=== PATIENT | female | born 1945 ===

== ENCOUNTER 2022-11-27 13:48 | Inpatient (IN) | payer MEDICARE, MEDICAID ==
[2022-11-27] VITALS (16 sets, daily range): BP systolic 129–185; BP diastolic 61–111
[~2022-11-27] VITALS: Ht 152.4 cm; Wt 56.5 kg
--- NOTE | 2022-11-27 15:00 | NUR ---
PT TO THE OR AT THIS TIME. DR BONNER IN TO SEE PATIENT PRIOR TO LEAVING THE FLOOR. PAS PLACED. SURGICAL PKT PLACED ON CHART AND CHECKLIST STARTED. PT IV'S PATENT X3. WILL MONITOR WHEN PT RETURNS TO FLOOR.
--- NOTE | 2022-11-27 16:08 | NUR ---
PT HAS 18 G IN R AC THAT FLUSHES WELL, NO SIGNS OF INFILTRATION. NO SWELLING, REDNESS, COOLNESS TO THE TOUCH.
[2022-11-27] MEDS ORDERED: HYDROCODONE-AC1 EAC7 PO (17:10)
--- NOTE | 2022-11-27 17:44 | NUR ---
11/27/22 1744 Carrie Alicea PT ON SCHEDULED ANTIBIOTICS
--- NOTE | 2022-11-27 19:33 | NUR ---
PT REMAINS IN OR AT THIS TIME FOR TRANSVERSE COLECTOMY. REPORT GIVEN TO HARJEET RN. SON UPDATED ON PT STATUS. PT ABX SENT WITH HER TO OR. TELE NEEDS TO BE PLACED WHEN PT RETURNS TO FLOOR.
--- NOTE | 2022-11-27 22:14 | NUR ---
PT ARRIVED TO RM 211 POST OP @2150. PT STATES 8/10 PAIN IN ABD, WILL SET UPPCA PUMP ORDERED. MIDLINE BRIELLE DRESSING INTACT. VSS. OPENS EYES TO VERBAL STIMULI. CALL LIGHT IN REACH.
--- NOTE | 2022-11-28 00:19 | NUR ---
PAIN MANAGEMENT PT REPORTING 10/10 CONSTANT DULL PRESSURE IN ABD. PT HAS BEEN PRESSING POUNCER MACHINE PUMP BUTTON, PAIN NOT BEING RELIEVED. PT GRIMACES, HOLDS ONTO ABD, MOANS & SAYS "PLEASE HELP." INFORMED DR GALEAS OF NO PAIN RELIEF & HE STATED TO USE ALREADY ORDERED IV DILAUDID ON EMAR TO ASSIST c PAIN RELIEF FIRST. NO ORDERS OR CHANGES TO ORDERS AT THIS TIME.
[2022-11-28 01:06] VITALS: BP 181/98
[2022-11-28 02:40] VITALS: BP 173/92
--- NOTE | 2022-11-28 02:56 | NUR ---
UPDATE ASKED BY TELE MONITOR TO CHECK ON PTS LEADS. PT VERY DIAPHORETIC WHEN ASSESSING LEADS & STATING PAIN LEVEL BACK UP TO 9 & CLIMBING, PT RECIEVING FENTANYL ART TRACER & NOT TIME FOR IV DILAUDID. SBP ALSO STILL TRENDING HIGH 170-180'S. INFORMED DR GALEAS & HE ORDERED 1x DOSE 10MG HYDRALAZINE & CHANGED IV DILAUDID TO Q2H PRN. WILL MEDICATED & MONITOR.
[2022-11-28 03:16] VITALS: BP 144/82
[2022-11-28 04:56] LABS: BASOPHILS ABSOLUTE AUTO 0.03 K/mm3 (0.00-0.23); BASOPHILS PERCENT AUTO 0 % (0-2); EOSINOPHILS PERCENT AUTO 0 % (0-6); Hematocrit 30.6 % (33.0-51.0); Hemoglobin 9.7 g/dL (11.5-16.0); IMMATURE GRAN ABSOLUTE AUTO 0.17 K/mm3 (0.00-0.10); IMMATURE GRAN PERCENT AUTO 1 % (0-1); LYMPHOCYTES ABSOLUTE AUTO 1.15 K/mm3 (0.84-5.20); LYMPHOCYTES PERCENT AUTO 7 % (21-46); MONOCYTES ABSOLUTE AUTO 0.96 K/mm3 (0.16-1.47); MONOCYTES PERCENT AUTO 6 % (4-13); Mean Corpuscular HGB 26.4 pg (26.0-34.0); Mean Corpuscular HGB Conc 31.7 g/dL (31.5-36.5); Mean Corpuscular Volume 83 fL (80-100); Mean Platelet Volume 8.6 fL (9.1-12.4); NEUTROPHILS ABSOLUTE AUTO 14.96 K/mm3 (1.96-9.15); NEUTROPHILS PERCENT AUTO 87 % (41-73); Platelet Count 702 K/mm3 (150-400); RDW Coefficient Variation 14.6 % (11.7-14.2); RDW Standard Deviation 44.5 fL (35.1-46.3); Red Blood Cell Count 3.68 M/mm3 (3.80-5.20); White Blood Cell Count 17.27 K/mm3 (4.00-11.30)
[2022-11-28 06:08] LABS: Albumin, Blood 2.3 g/dL (3.4-5.0); Albumin/Globulin Ratio 0.6 (0.8-1.8); Bilirubin, Total 0.4 mg/dL (0.1-1.0); Bun/Creatinine Ratio 20.8 (12.0-20.0); Calcium, Blood 7.9 mg/dL (8.5-10.1); Creatinine, Blood 0.38 mg/dL (0.40-1.00); Potassium, Blood 3.3 mmol/L (3.5-5.5); Total Protein, Blood 6.3 g/dL (6.4-8.2)
--- NOTE | 2022-11-28 06:30 | NUR ---
SHIFT SUMMARY AOX4. POD 1-EX LAP c COLECTOMY. MIDLINE BRIELLE DRESSING IN PLACE, C/D/I. ABD VERY PAINFUL, TENDER TO PALPATION. REPORTS 7-10/10 ABD PAIN, MEDICATED 2x c 1MG IV DILAUDID ON TOP OF USING EXECUTIVE CANDIDATE DEVELOPER PUMP, LOWEST PAIN LEVEL REPORTED WAS 6. DENIES N/V. HYPOACTIVE BT. BP ELEVATED EARLIER, READ PREVIOUS NOTE, LAST BP TRENDED DOWN TO 144/82. TELE ST c PVC'S HR 112 THIS AM. CR PATENT, 1000ML YELLOW URINE OUT. CALL LIGHT IN REACH, WILL MONITOR.
[2022-11-28 07:47] VITALS: BP 138/88
--- NOTE | 2022-11-28 10:36 | NUR ---
DR CARTWRIGHT IN TO SEE PT.
[2022-11-28 13:09] VITALS: BP 118/71
--- NOTE | 2022-11-28 13:15 | NUR ---
PATIENT DISORIENTED WHEN SHE WOKE UP PATIENT THOUGHT DAUGHTER WAS IN HOSP. REORIENTED PATIENT TO LOCATION THEN PATIENT WAS ABLE TO VERBALIZE REASON IN HOSP. APPEARS REORIENTED AT THIS TIME. PATIENT REPORTS GOOD PAIN CONTROL. CALL LIGHT WITHIN REACH BED ALARM ON FOR SAFETY.
--- NOTE | 2022-11-28 13:42 | NUR ---
REMOVED SATS 95% ON RA.
--- NOTE | 2022-11-28 15:04 | NUR ---
DR BONNER IN TO SEE PT.
--- NOTE | 2022-11-28 15:10 | NUR ---
Patient laying in bed. patient stated her pain level was comfortable. helped patient eat two ice chips and turned on the tv. Patient in bed watching tv with bed alarm on and call light within reach.
--- NOTE | 2022-11-28 16:00 | NUR ---
Reported to Nena Mcconnell rn who will assume overseeing care of pt.
--- NOTE | 2022-11-28 16:17 | NUR ---
CARE ASSUMED AT 1600. AT TIME OF BEDSIDE REPORT PT WAS SITTING UP TO THE CHAIR. HER HR IS ELEVATED WHEN SITTING TO THE CHAIR AND BP IS SOFT BUT STILL WNL. PAIN MANAGED WITH DILAUDID SWIM COACH. WILL CONTINUE TO MONITOR.
--- NOTE | 2022-11-28 17:53 | NUR ---
education educated patient on the importance of using a incentive spirometer. PATIENT DENIED USE OF SPIROMETER AT THIS. PATIENT LYING IN BED WITH CALL LIGHT WITHIN REACH AND BED ALARM ON.
--- NOTE | 2022-11-28 18:02 | NUR ---
SHIFT SUMMARY NO ACUTE CHANGES. PATIENT ON AND OFF THE PHONE WITH FAMILY MEMBERS THROUGH OUT THE DAY. PATIENT GOT UP ONCE IN CHAIR AND WAS ONLY ABLE TO TOLERATE IT FOR 20 MINUTES DUE TO PAIN AND HIGH HEART RATE (SEE VITAL SIGNS). PATIENT WAS ON FENTANYL CUSTOM TAILOR APPRENTICE PUMP BUT IT DID NOT MANAGE HER PAIN LEVEL AND WAS CHANGED TO A DILAUDID CUSTOM TAILOR APPRENTICE PUMP. PATIENT CUSTOM TAILOR APPRENTICE PUMP DILAUDID DOSE WAS LOWED (SEE EMAR) DUE TO PATIENT BEING CONFUSED AND SEEING HER DAUGHTER WHO WAS NOT IN THE ROOM. PATIENT STATES THE DILAUDID CUSTOM TAILOR APPRENTICE PUMP IS MANAGING HER PAIN LEVEL. PATIENT IS POST OP DAY 1 OF COLECTOMY AND HAS A BRIELLE DRESSING CLD ON HER MIDLINE ABDOMEN. PATIENT IS A ONE PERSON ASSIST. PATIENT WAS PLEASENT THROUGH OUT SHIFT AND LYING IN BED. CALL LIGHT WITHIN REACH AND BED ALARM ON.
[2022-11-28 19:30] VITALS: BP 119/77
--- NOTE | 2022-11-28 22:15 | NUR ---
ASSUMED CARE ASSUMED CARE OF PT, THE PATIENT IS CURRENTLY SLEEPIMG, IN NO DISTRESS, CALL LIGHT IN REACH
--- NOTE | 2022-11-28 22:28 | NUR ---
REPORT GIVEN TO DIVINE CELESTE RN.
[2022-11-29 02:38] VITALS: BP 135/68
--- NOTE | 2022-11-29 04:38 | NUR ---
SHIFT SUMMARY POD2 FOR TRANSVERSE COLECTOMY. MIDLINE BRIELLE IS C/D/I, NO EXUDATE NOTED. VSS. 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 PT REMAINS ASYMPTOMATIC. PER ORDER, DILAUDID DATA ANALYST ETL DEVELOPER STOPPED AT 2302 D/T INCREASED CONFUSION. PT IS A/OX2, CONTINUES TO LOOK FOR HER DOG AND FAMILY WHILE AWAKE AND APPERS TO BECOME SAD WHEN REORIENTED. REORIENTATION REQUIRED MULTIIPLE TIMES IN CONVORSATION WHEN PT IS AWAKE. PT HAS NOT REPORTED INCREASED PAIN SINCE DATA ANALYST ETL DEVELOPER HAS BEEN TURNED OFF. PT HAS BEEN ABLE TO REPOSITION SELF IN BED T/O THE NIGHT. CR REMAINS IN PLACE, DRAINING BELLA URINE. LOW URINE OUTPUT NOTED, IV FLUIDS INFUSING. PT HAS TOLLERATED ICE CHIPS T/O THE NIGHT PER ORDER W/O N/V. PT REPORTS NO FLATTUS. PLAN FOR PT TO FOLLOW MED/GABRIELA MANAGEMENT, ADVANCE DIET, HAVE PALLIATIVE CONSULT, AND D/C HOME WHEN APPROPRIATE.
--- NOTE | 2022-11-29 05:54 | NUR ---
PAIN CONTROL PT AWOKE AT 0545 AND IS A/OX4, ANSWERING ALL ORIENTATION QUESTIONS APPROPRIATELY AND ACTING APPROPRIATELY. PT REPORTING INCREASED PAIN AT THIS TIME, DIVISION HUMAN RESOURCES MANAGER RESTARTED WITH A DIVISION HUMAN RESOURCES MANAGER ONLY DOSE OF 0.2. NO CONTINUOUS DOSE PROGRAMED. VERIFIED WITH CHARGE JAYLENE.
[2022-11-29 07:17] VITALS: BP 113/68
--- NOTE | 2022-11-29 13:32 | NUR ---
Met with pt this morning along with Palliative volunteer. She is alert and oriented, pleasant and cooperative. She states she just found out she has cancer. She did not appear anxious about it, and reports she hasn't gotten any "specifics" yet. She states she hasn't had any discussions with surgeon or hospitalist regarding pathology or prognosis and hasn't met with any oncologist yet either. Pt discussed a lot of the stressors in her life currently, but shuts down almost immediately with any follow up questions. Code status and advanced care planning to be discussed at a later date, once pt has a better grasp and more detailed information.
[2022-11-29 14:56] VITALS: BP 141/77
--- NOTE | 2022-11-29 16:29 | NUR ---
SHIFT SUMMARY POD 2 COLECTOMY. MIDLINE ABDOMINAL INCISION W/ BRIELLE IN PLACE, LIGHT DRAINAGE NOTED, SUCTION INTACT. PAIN MANAGED WITH DILAUDID SALON SALES CONSULTANT. PATIENT UP TO CHAIR & BSC 1P MINIMAL ASSIST. CR DC'D, VOIDING W/O DIFFICULTY. REMAINS NPO PER ORDERS, TOLERATING ICE CHIPS WELL. DENIES N/V. DENIES FLATUS & BM. CALLS APPROPRIATELY, IN REACH.
[2022-11-29 20:22] VITALS: BP 133/81
[2022-11-30 03:48] VITALS: BP 121/79
--- NOTE | 2022-11-30 04:05 | NUR ---
SHIFT SUMMARY POD3 TRANSVERSE COLECTOMY. MIDLINE BRIELLE IS COMPRESSED, C/D/I. VSS, TELE READS 101 W/PVC'S. PT TOLLERATED SMALL AMOUNTS OF ORAL FLUIDS T/O THE NIGHT. MEDICATED FOR NAUSEA ONCE, NO ENESIS NOTED. PT SLEPT WELL T/O THE NIGHT. PAIN HAS BEEN MANAGED WITH CLIENT SERVICE ADMINISTRATOR. PT HAS HAD MULTIPLE INCONTINENT VOIDS T/O THE NIGHT. PT REPORTS NO FLATTUS, NO STOOL NOTED. T/O THE NIGHT PT HAS REQUIRED ONGOING ENCOURAGEMENT AND DIRECTION. PT REPORTS FEELING OVERWHELMED WITH CURRENT SITUATION. PLAN FOR PT TO SLOWLY ADCANCE DIET, AWAITING PATHOLOGY REPORT. THE PATIENT IS CURRENTLY RESTING, IN NO DISTRESS, CALL LIGHT IN REACH
[2022-11-30 06:13] LABS: BASOPHILS ABSOLUTE AUTO 0.12 K/mm3 (0.00-0.23); BASOPHILS PERCENT AUTO 1 % (0-2); EOSINOPHILS ABSOLUTE AUTO 0.11 K/mm3 (0.00-0.68); EOSINOPHILS PERCENT AUTO 1 % (0-6); Hematocrit 27.1 % (33.0-51.0); Hemoglobin 8.4 g/dL (11.5-16.0); IMMATURE GRAN ABSOLUTE AUTO 0.25 K/mm3 (0.00-0.10); IMMATURE GRAN PERCENT AUTO 2 % (0-1); LYMPHOCYTES ABSOLUTE AUTO 2.16 K/mm3 (0.84-5.20); LYMPHOCYTES PERCENT AUTO 20 % (21-46); MONOCYTES ABSOLUTE AUTO 0.79 K/mm3 (0.16-1.47); MONOCYTES PERCENT AUTO 7 % (4-13); Mean Corpuscular HGB 26.3 pg (26.0-34.0); Mean Corpuscular Volume 85 fL (80-100); Mean Platelet Volume 8.9 fL (9.1-12.4); NEUTROPHILS ABSOLUTE AUTO 7.62 K/mm3 (1.96-9.15); NEUTROPHILS PERCENT AUTO 69 % (41-73); Platelet Count 605 K/mm3 (150-400); RDW Coefficient Variation 15.1 % (11.7-14.2); RDW Standard Deviation 46.3 fL (35.1-46.3); Red Blood Cell Count 3.19 M/mm3 (3.80-5.20); White Blood Cell Count 11.05 K/mm3 (4.00-11.30)
[2022-11-30 06:47] LABS: Bun/Creatinine Ratio 12.5 (12.0-20.0); Creatinine, Blood 0.4 mg/dL (0.40-1.00)
--- NOTE | 2022-11-30 07:30 | NUR ---
Patient consent statement. Patient consented this 2nd year professional nursing tutor to participate in her care today 11/30/2022. CT
[2022-11-30 07:45] VITALS: BP 134/77
[2022-11-30 14:52] VITALS: BP 145/74
--- NOTE | 2022-11-30 15:30 | NUR ---
STUDENT NURSING NOTES. PT IS A/O X4. TOLERATING LIQUID DIET. EXPERIENCES INTERMITTENT HEARTBURN, BUT DENIES NAUSEA OR VOMITTING. PT UP TO CHAIR FOR BREAKFAST, BUT DECLINED FOR LUNCH D/T CHRONIC SCIATIC BACK PAIN. NO BOWEL MOVEMENT, OR PASSING GAS. IS BELCHING. AMBULATES WITH WALKER. HX OF INCONTINENCE AND WEARS ATTENDS PER REQUEST. SOMETIMES USES CALL LIGHT FOR BEDPAN. MIDLINE ABDOMINAL BRIELLE DRESSING IS INTACT, COMPRESSED AND SUCTIONING. SCANT DRAINAGE PRESENT.
--- NOTE | 2022-11-30 17:52 | NUR ---
END OF SHIFT SUMMARY. PT HAD BREAKTHROUGH HEARTBURN THIS AFTERNOON AFTER ROUTINE PEPCID. ORDERS FOR PRN TUMS RECEIVED AND ALLEVIATED SX PER PT REPORT. PT CONTINUING TO AMBULATE AND UP TO CHAIR FOR DINNER. PT HAD GRANDSON AND HIS GIRLFRIEND VISIT AT DINNER TIME. PT SMILING AND CONTENT AT THIS TIME. DENIES NAUSEA, VOMITING, CHEST PAIN OR SOB. EARLIER THIS AM RIGHT HAND IV STARTED TO LEAK AND WAS NOT PATENT. PT HAD A NEW IV PLACED IN RIGHT FOREARM. DR. COLLADO ROUNDED ON PT THIS EVENING AND SPOKE WITH PT AND VISITORS. NEW ORDERS RECEIVED TO DC SALES TEAM RECRUITER AND K. NEW ORDERS TO INITIATE NORCO AND FULL LIQUID DIET. BRIELLE IS INTACT AND COMPRESSED.
[2022-11-30 19:40] VITALS: BP 132/85
[2022-12-01 03:16] VITALS: BP 141/75
--- NOTE | 2022-12-01 04:15 | NUR ---
SHIFT SUMMARY POD4 TRANSVERSE COLECTOMY. MIDLINE BRIELLE COMPRESSED. LIGHT SS DRAINAGE NOTED. VSS. PT TOLLERATED SIPS OF CLEARS T/O THE NIGHT. MEDICATED TWICE FOR HEARTBURN AND NAUSEA. NO EMESIS NOTED. PT PASSED FLATTUS AND HAD A MEDIUM LOOSE DARK GREEN BM. INCONTINENT VOIDS T/O THE NIGHT. PT SLEPT ON AND OFF. REQUIRED ONGOING ENCOURAGEMENT AND EDUCATION T/O THE NIGHT. PT REPORTS FEELING "WEAK" AND HAVING LITTLE MOTIVATION. PLAN FOR PT TO SLOWLY CONTINUE TO ADVANCE DIET AND HAVE BOWEL FUNCTION MONITORED. THE PATIENT IS CURRENTLY SLEEPING, IN NO DISTRESS, CALL LIGHT IN REACH
[2022-12-01 05:09] LABS: Hematocrit 26.8 % (33.0-51.0); Hemoglobin 8.3 g/dL (11.5-16.0); Mean Corpuscular Volume 84 fL (80-100); Mean Platelet Volume 8.9 fL (9.1-12.4); Platelet Count 615 K/mm3 (150-400); RDW Coefficient Variation 15.1 % (11.7-14.2); RDW Standard Deviation 45.9 fL (35.1-46.3); Red Blood Cell Count 3.19 M/mm3 (3.80-5.20); White Blood Cell Count 9.89 K/mm3 (4.00-11.30)
[2022-12-01 05:23] LABS: Bun/Creatinine Ratio 12.7 (12.0-20.0); Calcium, Blood 8.1 mg/dL (8.5-10.1); Creatinine, Blood 0.4 mg/dL (0.40-1.00); Percent Saturation 40.4 % (15.0-50.0); Potassium, Blood 3.3 mmol/L (3.5-5.5)
[2022-12-01 07:08] VITALS: BP 140/75
--- NOTE | 2022-12-01 07:43 | NUR ---
PATIENT CONSENT STATETMENT. PATIENT CONSENTED THIS 2ND YEAR NCA CERTIFIED CONCIERGE TO PARTICIPATE IN HER CARE TODAY 12/01/2022. CT PT REPORTED HEARTBURN AND NAUSEA. DENIES VOMITING. PT IN LEFT SIDE LYING POSITION WITH HOB FLAT. DISCUSSED NEED TO ELEVATE HOB TO IMPROVE HEARTBURN. PT CHANGED POSITION WITH RAISED HOB MINIMALLY. PT REPORTED FEELING TIRED.
--- NOTE | 2022-12-01 10:18 | NUR ---
PATIENT TIRED THIS MORNING AND DECLINED BREAKFAST. HAS BEEN PASSING GAS AND HAVING BOWEL INCONTINENCE. SHE IS DRINKING WATER. GOT UP FOR ATTEND CHANGE 1 X THUS FAR. PT TEARFUL ABOUT "WANTING TO BE LEFT ALONE".
[2022-12-01 14:20] VITALS: BP 117/80
--- NOTE | 2022-12-01 18:44 | NUR ---
SHIFT SUMMARY. PT EXPERIENCED NAUSEA AND HEARTBURN THIS MORNING THAT RESOLVED WITH TUMS. PT WAS TEARFUL THIS MORNING D/T FAMILY STRESS. THERAPEUTIC COMMUNICATION PROVIDED. PT PASSING GAS AND MOVING BOWELS THIS SHIFT. NO VOMITING, SOB, CHEST PAIN. REPORTS GENERALIZED WEAKNESS AND FATIGUE. AMBULATED WITH WALKER AND GAITBELT. PT TOLERATING DIET ORDER CHANGE AND HAD MASHED POTATOES.
[2022-12-01 19:49] VITALS: BP 115/61
--- NOTE | 2022-12-01 23:10 | NUR ---
PT C/O NAUSEA AND HEARTBURN TONIGHT.I GAVE ZOFRAN AND PEPCID WITH REPORT OF NO RELIEF.I CALLED DR TREJO AND RECEIVED ORDERS FOR IV FLUIDS,COMPAZINE,AND MELATONIN PT REQUEST A MED FOR SLEEP.
[2022-12-02 04:44] VITALS: BP 113/70
[2022-12-02 07:14] VITALS: BP 116/72
--- NOTE | 2022-12-02 07:59 | NUR ---
SUMMARY PT REPORTED NEW MEDS EFFECTIVE.
[2022-12-02 15:03] VITALS: BP 125/83
--- NOTE | 2022-12-02 18:59 | NUR ---
SHIFT SUMMARY PT IS POD 5 FROM SUB TOTAL COLECTOMY. VSS, LUNGS CTA BILATERALLY. IV PATENT, DRESSING C/D/I. PT HAD SOME C/O HEARTBURN AND PAIN THROUGHOUT SHIFT, PT MEDICATED PER EMR. PT WAS OOB THIS AM. PT IS CONTINUING TO HAVE LOOSE STOOLS AND EPISODES OF INCONTINENCE. BRIELLE IN PLACE, DRESSING C/D/I. PT WAS OBSERVED USING IS THROUGHOUT SHIFT. PT RESTING COMFORTABLY, CALL LIGHT WITHIN REACH.
[2022-12-02 20:51] VITALS: BP 133/70
[2022-12-03 04:02] VITALS: BP 133/69
[2022-12-03 04:16] LABS: Hematocrit 27.8 % (33.0-51.0); Hemoglobin 8.8 g/dL (11.5-16.0); Mean Corpuscular HGB 26.4 pg (26.0-34.0); Mean Corpuscular HGB Conc 31.7 g/dL (31.5-36.5); Mean Corpuscular Volume 84 fL (80-100); Mean Platelet Volume 9.1 fL (9.1-12.4); Platelet Count 598 K/mm3 (150-400); RDW Coefficient Variation 15.5 % (11.7-14.2); RDW Standard Deviation 45.9 fL (35.1-46.3); Red Blood Cell Count 3.33 M/mm3 (3.80-5.20); White Blood Cell Count 8.65 K/mm3 (4.00-11.30)
[2022-12-03 04:35] LABS: Bun/Creatinine Ratio 18.8 (12.0-20.0); Calcium, Blood 7.8 mg/dL (8.5-10.1); Creatinine, Blood 0.43 mg/dL (0.40-1.00)
--- NOTE | 2022-12-03 04:39 | NUR ---
A/O X4- STANDBY ASSIST IN ROOM. INCONTINENT OF URINE, ATTENDS IN PLACE. BRIELLE DRESSING ON ABDOMEN, NO NEW DAINAGE, INTACT. LITTLE REPORT OF PAIN THROUGHOUT SHIFT, TREATED W/ ONE PO PAIN PILL. TOLERATED FULL LIQUID DIET W/ NO REPORT OF N/V. WILL CONTINUE TO MONITOR AND REPORT TO ONCOMING RN.
[2022-12-03 07:19] VITALS: BP 130/73
--- NOTE | 2022-12-03 10:30 | NUR ---
SHIFT ASSESSMENT FINDINGS DOCUMENTED ON SHIFT ASSESSMENT DOCUMENTATION BY YEMI JOVEL STUDENT NURSE ARE CONSISTANT WITH FINDINGS BY THIS RN.
--- NOTE | 2022-12-03 10:44 | NUR ---
DR. RAMIREZ IN ROOM, STATES PT IS READY TO D/C. BRIELLE DRESSING TO COME OFF TOMORROW (POD #7) PER DR. RAMIREZ.
[2022-12-03] MEDS ORDERED: HYDR1TAB94 PO (11:26)
[2022-12-03 13:38] VITALS: BP 134/71
--- NOTE | 2022-12-03 13:39 | NUR ---
DISCHARGE PT D/C AT APPROXIMATELY 13:30. PAIN MEDICATED PER EMR PRIOR TO DEPARTURE, PT REPORTS PAIN IS MANAGED WELL AT THIS TIME. VSS. DISCHARGE EDUCATION PROVIDED, PT EXPRESSED UNDERSTANDING AND HAD NO QUESTIONS OR CONCERNS. PT ASSISTED INTO PERSONAL VEHICLE, FAMILY ARE DRIVING PT HOME.
== END 2022-12-03 13:25 | disposition home or self-care (01) | DRG 329 ==
LOC: SURS 13:48
PROVIDERS: Internal Medicine; Surgery; ADMIT Internal Medicine
PROC: 0DTK0ZZ Resection of Ascending Colon, Open Approach (ICD-10-PCS; principal; 2022-11-27 17:00)
PROC: 0DTL0ZZ Resection of Transverse Colon, Open Approach (ICD-10-PCS; principal; 2022-11-27 17:00)
DX: C18.4 Malignant neoplasm of transverse colon (principal); K63.1 Perforation of intestine (nontraumatic); F11.20 Opioid dependence, uncomplicated; R65.10 Systemic inflammatory response syndrome (SIRS) of non-infectious origin without acute organ dysfunction; G89.29 Other chronic pain; E87.6 Hypokalemia; E86.0 Dehydration; D63.0 Anemia in neoplastic disease; M54.9 Dorsalgia, unspecified; R63.4 Abnormal weight loss; Z85.3 Personal history of malignant neoplasm of breast; Z90.710 Acquired absence of both cervix and uterus; Z98.51 Tubal ligation status; Z98.890 Other specified postprocedural states; Z90.13 Acquired absence of bilateral breasts and nipples; Z88.0 Allergy status to penicillin; Z88.2 Allergy status to sulfonamides
CPT/HCPCS: 36415; 80048; 80053; 82728; 83540; 83550; 85025; 85027; 88309; 93005; 93010; 94760; 94762; A9270; J0330; J0360; J0696; J0780; J1100; J1170; J1650; J2370; J2405; J2704; J3010; J3480; J7030; J7050; J7120